=== PATIENT | male | born 1960 | race Caucasian/White ===

== ENCOUNTER 2023-04-22 06:56 | Day surgery (SDC) | payer OTHER ==
[~2023-04-22] VITALS: Ht 180.3 cm; Wt 94.7 kg
[~2023-04-22 06:56] MED LIST: JARDIANCE25 MG PO; LIDO700A20 TOP; METF500; METFORMIN 1000 MG; OMEGA-3 FISH O1 EA13; PRAV20; Robaxin-750750 MG PO
--- NOTE | 2023-04-22 09:00 | NUR ---
04/22/23 0900 Renee Anaya TIME OUT PERFORMED. ALL CONSENTS SIGNED FOR BLOCK WITH DR FLORES.
--- NOTE | 2023-04-22 09:46 | NUR ---
04/22/23 0946 Charis Flores 1 MG EPI ADDED TO THE FIRST BAG OF LR, PER ORDER, FOR IRRIGATION AT [facility] BY DR DIOP 0.1 MG EPI (1MG/ML) ADDED TO 10 MLS OF NORMAL SALINE, PER ORDER, TO MAKE EPI 1:100,000 FOR INJECTION AT [facility] BY DR DIOP.
--- NOTE | 2023-04-22 11:46 | NUR ---
04/22/23 1146 ELINA FRIEND PT TRIALED OFF O2. DESAT IN UPPER 80'S. PT STATE THAT HE FELT LIKE HE COULDN'T BREATH. PUT ON 5L O2, O2 SAT 91%. PT BACK ON 10 L O2. O2 SAT CURRENTLY 96%
[2023-04-22 12:22] VITALS: BP 111/65
--- NOTE | 2023-04-22 12:23 | NUR ---
04/22/23 1223 ELINA FRIEND IN AT BEDSIDE. PT EATING AND DRINKING CURRENTLY WO DIFF.
== END 2023-04-22 14:13 | disposition home or self-care (01) ==
LOC: ORSCSDS 06:56
PROVIDERS: Orthopaedic Surgery
PROC: 0LS34ZZ Reposition Right Upper Arm Tendon, Percutaneous Endoscopic Approach (ICD-10-PCS; principal; 2023-04-22 08:45)
DX: M75.121 Complete rotator cuff tear or rupture of right shoulder, not specified as traumatic (principal); S46.211A Strain of muscle, fascia and tendon of other parts of biceps, right arm, initial encounter; E11.9 Type 2 diabetes mellitus without complications; Z87.891 Personal history of nicotine dependence; Z79.84 Long term (current) use of oral hypoglycemic drugs; Z79.899 Other long term (current) drug therapy
CPT/HCPCS: 82947; A9270; C1713; J0171; J0690; J1100; J1885; J2250; J2405; J2704; J2765; J3010; J7120